=== PATIENT | male | born 1960 | race Caucasian/White ===

== ENCOUNTER 2016-07-29 02:54 | Day surgery (SDC) | payer OTHER ==
[2016-07-29] VITALS (19 sets, daily range): BP systolic 106–130; BP diastolic 57–68; PULSE 62–85; RESP 12–20; O2SAT 90–97
[~2016-07-29] VITALS: Ht 180.3 cm; Wt 107.9 kg
[~2016-07-29 02:54] MED LIST: ASPI-973 PO; CHOL10008 PO; CLOP75TA28 PO; DOXA2TAB52 PO; LIP40 PO; METO25TA6 PO; NIFE30TA79 PO; NITR0.4T SL; TELM1TAB PO; ZOLP5TAB6 PO
[2016-07-29 12:17] LABS: BASOPHILS % (AUTO) 0.7 % (0-3); EOSINOPHILS % (AUTO) 1.6 % (0-5); MONOCYTES % (AUTO) 8.3 % (4-12); Mean Corpuscular Volume 88.1 fL (81-100); NEUTROPHILS % (AUTO) 63.6 % (40-74); Platelet Count 214 bil/L (150-400)
[2016-07-29] MEDS ORDERED: 0.9% Sodium Chloride 1,000 ML ONE (13:05)
[2016-07-29] MEDS ORDERED: Heparin 5,000 Units/500 mL NS Premix IV ONE (14:00)
[2016-07-29] MEDS ORDERED: Nitroglycerin 50,000 mcg/250 mL D5W Premix IV ONE (14:00)
[2016-07-29] MEDS ORDERED: Heparin 1,000 Units/500 mL NS Premix IV ONE (14:00)
[2016-07-29] MEDS ORDERED: Verapamil 2.5 mg/mL 2 mL Inj ONE (14:01)
[2016-07-29] MEDS ORDERED: Heparin 1,000 Unit/mL 10 mL Inj ONE (14:09)
[2016-07-29] MEDS ORDERED: fentaNYL-PF 50 mCg/mL 2 mL Inj ONE (14:13)
--- NOTE | 2016-07-29 15:46 | DI95 ---
[address] [address] INTERVENTIONAL CARDIAC CATHETERIZATION PATIENT: KENNEDY RUTLEDGE : 1960 MR#: [id number] ADMIT: 07/29/2016 JOB ID: [id number] DATE OF SERVICE: 07/29/2016 PROCEDURE: 1. Left heart catheterization. 2. Percutaneous intervention on the left anterior descending. INDICATION: New-onset angina. HISTORICAL DETAILS: This patient was seen by Dr. Stroud yesterday. An urgent angiogram was requested. I spoke with the patient. It appears that he has been having off and on chest discomfort for almost six months. It has gotten much worse over the last few weeks. It occurs with exertion. It is relieved promptly with rest. He gives history that is suggestive of classic angina. Risks, benefits and alternatives were explained to the patient, and he agreed to proceed ahead with a diagnostic angiogram, with the possibility of an intervention. PROCEDURAL DETAILS: These are well enumerated in the procedure log to which the coders are referred. Briefly, right radial approach, 6-[place]ian system. ANGIOGRAPHIC FINDINGS: 1. Left main: No significant disease. 2. LAD is a large transapical vessel. It has significant ectasia in its proximal and mid segments. Past the second area of ectasia, there is a tight, 90% lesion. The second diagonal has two tandem lesions of about 40%. 3. Circumflex is nondominant. It has mild luminal irregularities. It is free of any critical stenosis. 4. The right coronary is a very large-caliber, mildly ectatic vessel. It is free of any critical stenosis. Mild luminal irregularities are noted. 5. Left heart catheterization revealed an LVEDP of 15, and there was no gradient upon pullback. The left heart function is preserved and is estimated to be around 65%. INTERVENTIONAL REPORT: We then proceeded ahead with an intervention on his LAD. A Runthrough wire was placed in the LAD, and it was pre-dilated with a 2.0 and then with a 3.0 balloon. Because of the size mismatch between the vessel and the proximal ectasia, we decided to have a very small part of the stent protrude into the ectatic segment. A 4.0 x 15 mm stent was placed in the mid LAD. The proximal part of the stent was post dilated with a 5.0 noncompliant balloon. Note is made of the fact that between the very proximal LAD and the mid LAD, these two segments are ectatic, and there is a segment which by default appears tight. However, it is still at least a 3 mm vessel in this area. No intervention is needed on that part. IMPRESSION: In summary, this gentleman has had an intervention on his mid left anterior descending. He has significant coronary artery disease in his left anterior descending. RECOMMENDATIONS: He is advised aggressive risk factor modification. Follow up with Dr. Stroud in two weeks.
[2016-07-29] MEDS ORDERED: Sodium Chloride LOK Flush 10 mL Syringe IVFLUSH PRN ×2 (16:15→20:40)
[2016-07-29] MEDS ORDERED: Atropine 1 mg/10 mL (Code) Syringe IVPUSH PRN ×2 (16:15→20:40)
[2016-07-29] MEDS ORDERED: 0.9% Sodium Chloride 250 ML BOLUS IV PRN ×2 (16:15→20:40)
[2016-07-29] MEDS ORDERED: 0.9% Sodium Chloride 400 ML (4 HRS) IV ONE ×2 (16:15→20:40)
[2016-07-29] MEDS ORDERED: Ondansetron 2 mg/mL 2 mL Inj IVPUSH PRN ×2 (16:15→20:40)
--- NOTE | 2016-07-29 17:38 | NUR ---
[facility] Patient to [facility] bed 1 at 1200 for heart cath. at bedside. Patient denies pain. HL X 2 placed and labs obtained. Consent in chart. History and medications reviewed. Pre-procedure teaching done and questions answered. Patient returned from lab specialist at 1525 complaining of 3/10 CP. He received 1 spray NTG just prior to leaving the lab specialist without change in pain. He received 1 spray after arrival in [facility] without any change in pain. Patient then given MS 2mg IV which decreased pain to less than 0.5/10 to 0. will continue to monitor frequently. Tr band to right wrist. Radial pulse present. Denies pain or numbness in right hand. Tr deflation started at 1730.
--- NOTE | 2016-07-29 19:33 | NUR ---
JOSE GUADALUPE Patient family at [facility]. TR band removed without bleeding or hematoma. Taking PO and ate dinner. After eating C/O 07/19 CP. Medicated with MS 2mg for immediate relief and reports pain as <1 and improving. Transferred to room 3001 by bed at 1915. Report to receiving RN.
--- NOTE | 2016-07-30 04:09 | NUR ---
Transfer Pt arrived to [facility] room 3001 from [facility] by bed at approx. 1930, report received from [facility] RN. Pt AOx3, independent in room. R radial access C/D/I to assessment, pt denies pain, no hematoma present. Pt denies pain upon arrival, but states low-grade dull ache to chest at 2/10 since post-procedure. At approx. 2200, pt reports pain increased to 4/10 without changing quality; 2mg morphine administered IVP, STAT EKG obtained, VSS. Pt reports relief upon reassessment; at approx. 0000, pt states "Oh, it's really not even there anymore; I think I just needed to calm down." Pt able to rest throughout shift. CPAP obtained via RT d/t pt's medical history of VERITO and home CPAP not brought with pt. SpO2 95% on RA. Tele SR 80s.
[2016-07-30 05:44] VITALS: PULSE 80
[2016-07-30 05:52] VITALS: BP 119/68; PULSE 86; RESP 18; O2SAT 96
[2016-07-30] MEDS ORDERED: NIFEdipine 30 mg ER24 Tablet PO SCH (08:30)
[2016-07-30 09:08] VITALS: BP 123/75; PULSE 90; RESP 18; O2SAT 96
[2016-07-30 10:06] VITALS: PULSE 77
--- NOTE | 2016-07-30 12:14 | NUR ---
Mobility Pt has been ind in room this shift. Denies any CP/discomfort. This RN accompanied pt on a walk around unit, pt tolerated well with no c/o SOB or dyspnea.
--- NOTE | 2016-07-30 12:46 | PCM.DIMED ---
Discharge Instructions Date of Service Jul 30, 2016 Dates of Hospitalization 07/29/2016 Discharge Diagnosis Discharge Diagnosis Exertional angina, s/p PAYTON placement to LAD Medication Instructions Please make sure that you take all medications as prescribed. Please make sure that you take Clopidogrel (Plavix) every day for at least one year because you had stent placement. Diet Low fat, Low Sodium, Heart Healthy Activity Other (Please see below) Call your provider Shortness of breath, Chest pain Patient Instructions Do not drive car for couple of days. You can take shower starting from today. Please do not soak your right arm in the water for one week. No heavy lifting, no more than 7-10 lb for one week; otherwise please be physically active as tolerated If you develop chest pain, please call 911 and go to ER. Provider: Milena Stroud MD Follow-up in: 2 weeks Additional Information Please do blood work: BMP and CBC in 1 week Moustapha Paetl PA-C Jul 30, 2016 12:46
--- NOTE | 2016-07-30 13:09 | PCM.DC.MED ---
Discharge Summary Date of Service Jul 30, 2016 Dates of Hospitalization Date of Hospital Admission 07/29/2016 Date of Discharge: Jul 30, 2016 Providers: Admitting Physician: Primary Care Physician: Nai Attending Physician: Milena Stroud MD Diagnosis at Time of Discharge Diagnosis at Time of Discharge Exertional angina, CAD, s/p PAYTON placement to LAD Brief History This is a very pleasant 56 y/o gentleman with h/o HTN and VERITO who on 07/29/2016 had an elective cardiac catheterization because of exertional angina. Hospital Course This is a very pleasant 56 y/o gentleman with h/o HTN and VERITO who on 07/29/2016 had an elective cardiac catheterization because of exertional angina. It was done through right radial approach. The patient found to have 90% of LAD stenosis and had PAYTON placement to mid LAD. He did not have any other obstructive CAD. Left ventriculography showed LV EF around 65%. The patient tolerated procedure well. Right arm is not painful, nontender with palpation, no hematoma, no bleeding, peripheral pulses preserved. The patient ambulated in the oseguera. Denies having any chest pain/pressure/ discomfort; denies VICTOR, orthopnea or PND. BP is controlled. On telemetry sinus rhythm with HR in 70s-80s, episode of nonsustained V-tach (3 beats on 07/30/2016 3:11 am) and episode of PVC couplets (07/30/2016 6:47 am). He already was started on Plavix as outpatient. Medications on discharge are below. I explained the patient the importance of taking all medications as prescribed including Plavix which he needs to take every day at least one year. Exam Vital Signs (Last) Date Time Temp Pulse Resp B/P Pulse Ox O2 Delivery O2 Flow Rate FiO2 07/30/16 10:06 77 07/30/16 09:08 36.6 18 123/75 96 Room Air 07/29/16 18:44 2.00 Exam General: no ACD ENT: scleare unicteric, mucous membranes moist Neck: supple, no thyromegaly Pulmo: Normal breathing sounds bilaterally, no crackles, no wheezing Cardiovascular: RRR, normal S1&S2, No murmur appreciated, JVP is not elevated Abdomen: nontender with palpation Extremities: no LE edema Skin: no rash, no skin breakdown. Neuro: A&Ox3, no gross abnormalities Test 07/29/16 12:14 07/30/16 05:05 White Blood Count 6.8th/mm3 (3.8-10.1) Red Blood Count 4.70mil/mm3 (4.40-5.80) Hemoglobin 14.1g/dL (13.8-17.2) Hematocrit 41.4% (41.0-50.0) Mean Corpuscular Volume 88.1fL (81-100) Mean Corpuscular Hemoglobin 30.0pg (27.0-35.0) Mean Corpuscular Hemoglobin Concent 34.1% (32.0-37.0) Red Cell Distribution Width 13.4% (12.3-15.4) Platelet Count 214bil/L (150-400) Neutrophils (%) (Auto) 63.6% (40-74) Lymphocytes (%) (Auto) 25.4% (14-46) Monocytes (%) (Auto) 8.3% (4-12) Eosinophils (%) (Auto) 1.6% (0-5) Basophils (%) (Auto) 0.7% (0-3) Sodium Level 135mEq/L (134-144) Potassium Level 3.5mEq/L (3.5-5.2) Chloride Level 99mEq/L (97-108) Carbon Dioxide Level 24mmol/L (18-29) Blood Urea Nitrogen 20mg/dL (6-24) Creatinine 0.99mg/dL (0.76-1.27) Estimat Glomerular Filtration Rate 83mL/min (>59) Glucose Level 112mg/dL (60-99) Calcium Level 8.8mg/dL (8.5-10.1) Discharge Medications Discharge Medications Aspirin (Aspirin) 81 Mg Tablet 81 MG PO DAILY (Reported) Atorvastatin (Lipitor) 40 Mg Tablet 40 MG PO DAILY (Reported) Cholecalciferol (Vitamin D3) (Vitamin D3) 1,000 Unit Tab.chew 1,000 UNIT PO DAILY (Reported) Clopidogrel (Clopidogrel) 75 Mg Tablet 75 MG PO DAILY (Reported) Doxazosin (Cardura) 2 Mg Tablet 2 MG PO HS (Reported) Metoprolol Tartrate (Metoprolol Tartrate) 25 Mg Tablet 25 MG PO BID (Reported) Nifedipine ER (Nifedipine ER) 30 Mg Tab.er.24 30 MG PO DAILY (Reported) Nitroglycerin SL (Nitrostat) 0.4 Mg Tab.subl 0.4 MG SL Q5MIN (Reported) Telmisartan/HCTZ 80-25 mg (Micardis HCT 80-25 mg) 1 Each Tablet 1 TABLET PO DAILY (Reported) As needed Zolpidem (Zolpidem) 5 Mg Tablet 5 MG PO HS PRN PRN For Insomnia (Reported) Additional med instructions Please make sure that you take all medications as prescribed. Please make sure that you take Clopidogrel (Plavix) every day for at least one year because you had stent placement. Followup Plan Discharge Diet: Low fat, Low Sodium, Heart Healthy Discharge Activity: Other (Please see below) Patient Instructions Do not drive car for couple of days. You can take shower starting from today. Please do not soak your right arm in the water for one week. No heavy lifting, no more than 7-10 lb for one week; otherwise please be physically active as tolerated If you develop chest pain, please call 911 and go to ER. Mid-level Provider: Moustapha Patel PA-C Follow-up with Mid-level in: 2 weeks Moustapha Patel PA-C Jul 30, 2016 13:09
--- NOTE | 2016-07-30 14:41 | NUR ---
DISCHARGE Pt discharged home this afternoon at 1430, accompanied off unit by CONSTRUCTION [employer]ER and family. Pt A&Ox4, VSS, denies pain and in no apparent distress. IV dc'd intact, all belongings returned. All instructions for diet, activity, medications, prescriptions and follow up reviewed with patient who reports understanding.
== END 2016-07-30 13:41 | disposition home or self-care (01) ==
LOC: SPI 02:54 → MPC 18:58 → SPI 07-30 13:41
PROVIDERS: ATTEND Internal Medicine Cardiovascular Disease
DX: I25.118 Atherosclerotic heart disease of native coronary artery with other forms of angina pectoris (principal); I10 Essential (primary) hypertension; G47.33 Obstructive sleep apnea (adult) (pediatric); Z79.82 Long term (current) use of aspirin; E78.5 Hyperlipidemia, unspecified
CPT/HCPCS: 36415; 80048; 85025; 93005; 93458; 99152; 99153; C1725; C1769; C1874; C1887; C1894; C9600; J1644; J2250; J2270; J3010; J7030; Q9967